=== PATIENT | female | born 1945 | race African-American/Black ===

== ENCOUNTER 2016-07-29 14:42 | Observation (INO) | payer OTHER ==
[~2016-07-29] VITALS: Ht 160 cm; Wt 104.8 kg
[2016-07-29] MEDS ORDERED: ASPirin 81 mg TAB PO ONE (15:30)
[2016-07-29 15:33] LABS: Basophils # (auto) 0.1 uL; Basophils % (auto) 0.9 % (0.0-2.0); Eosinophils # (auto) 0.1 uL; Eosinophils % (auto) 1.5 % (0.0-7.0); Hematocrit 40.9 % (36.0-46.0); Lymphocytes % (auto) 37.1 % (10.0-50.0); Mean Corpuscular Hemoglobin 28.5 pg (28.0-32.0); Mean Corpuscular Hgb Conc. 31.9 g/dL (32.0-36.0); Mean Corpuscular Volume 89.3 fL (80.0-100.0); Mean Platelet Volume 7.9 fL (7.4-10.4); Monocytes # (auto) 0.9 uL; Monocytes % (auto) 10.4 % (0.0-12.0); Neutrophils # (auto) 4.1 uL; Neutrophils % (auto) 50.1 % (37.0-80.0); Platelet Count (auto) 443 10^3/uL (140-450); Red Cell Distribution Width 14.9 % (11.6-16.0); White Blood Cell 8.2 10^3/uL (4.4-10.8)
[2016-07-29 15:47] LABS: INR 0.99 (0.9-1.15); Partial Thromboplastin Time 30.1 sec (22.64-33.71); Prothrombin Time 10.7 sec (9.37-12.3)
[2016-07-29 16:05] LABS: Albumin 3.2 g/dL (3.4-5.0); BUN/Creatinine Ratio 13.7; Bilirubin, Total 0.5 mg/dL (0.2-1.0); Calcium 9.5 mg/dL (8.5-10.1); Magnesium 2.6 mg/dL (1.6-2.6); Potassium 3.5 mmol/L (3.5-5.1); Total Protein 7.4 g/dL (6.4-8.2)
[2016-07-29 16:06] LABS: B-Type Natriuretic Peptide 45.55 pg/mL (0-100)
[2016-07-29 21:36] VITALS: BP 160/75
== END 2016-07-29 21:49 | disposition short-term general hospital (02) | DRG 313 ==
LOC: ER 14:52 → OVERFLOW 15:21 → ER 21:49
PROVIDERS: ADMIT Family Medicine; ATTEND Family Medicine
DX: R07.9 Chest pain, unspecified (principal); F17.210 Nicotine dependence, cigarettes, uncomplicated; J44.9 Chronic obstructive pulmonary disease, unspecified; I10 Essential (primary) hypertension; E78.5 Hyperlipidemia, unspecified; Z82.49 Family history of ischemic heart disease and other diseases of the circulatory system
CPT/HCPCS: 36415; 71010; 80053; 83735; 83880; 84443; 84484; 85025; 85379; 85610; 85730; 93005; 99285; G0378

== ENCOUNTER 2024-08-17 19:33 | Inpatient (IN) | payer OTHER ==
[~2024-08-17] VITALS: Ht 167.6 cm; Wt 63.6 kg
--- NOTE | 2024-08-17 19:53 | ECG ---
[facility] Test Date: 2024-08-17 Test Time: 19:42:48 Pat Name: JERRY MACON Department: ED Room: [address] [place] [address] Gender: F Mason Liner: ANICETO : 1945 Requested By: YAMILET ALMARAZ Order Number: [id number] Reading MD: Alexx Wood Measurements Intervals [place] Rate: 53 P: 57 TX: 171 QRS: 2 QRSD: 102 T: -74 QT: 470 QTc: 442 Interpretive Statements Sinus rhythm Atrial premature complexes Nonspecific T abnormalities, diffuse leads Electronically Signed On 08-24-2024 11:11:44 PDT by Alexx Wood Please click the below link to view image of tracing.
[2024-08-17 20:12] LABS: Basophils # (auto) 0.1 10 ^3/uL (0-0.2); Basophils % (auto) 1.1 % (0.0-2.0); Eosinophils # (auto) 0 10 ^3/uL (0-0.8); Eosinophils % (auto) 0.1 % (0.0-7.0); Hemoglobin 11.5 g/dL (12.2-16.2); Lymphocytes # (auto) 1.2 10 ^3/uL (0.4-5.4); Lymphocytes % (auto) 20.8 % (10.0-50.0); Mean Corpuscular Volume 93.8 fL (80.0-100.0); Monocytes # (auto) 0.3 10 ^3/uL (0-1.3); Monocytes % (auto) 5.5 % (0.0-12.0); Neutrophils # (auto) 4.1 10 ^3/uL (1.6-8.6); Neutrophils % (auto) 72.5 % (37.0-80.0); Nucleated Red Blood Cells % 0.1 %; Platelet Count (auto) 310 10^3/uL (140-450); Red Blood Cells 3.83 10^6/uL (4.0-5.20); Red Cell Distribution Width 15.1 % (11.8-14.3); White Blood Cell 5.6 10^3/uL (4.4-10.8)
[2024-08-17 20:28] LABS: Albumin 4.1 g/dL (3.2-4.8); Alkaline Phosphatase 84 U/L (46-116); Anion Gap 7 (5-15); BUN/Creatinine Ratio 16.6 (10.0-20.0); Glucose 94 mg/dL (74-106); Potassium 4.3 mmol/L (3.5-5.1); Sodium 141 mmol/L (136-145); Total Protein 6.7 g/dL (5.7-8.2)
[2024-08-17 20:29] LABS: Bilirubin, Total 1.2 mg/dL (0.2-1.0)
--- NOTE | 2024-08-17 21:02 | ED.PDOC ---
History of Present Illness HPI Comments 71-year-old female with a history of hypertension, angina, hyperlipidemia, COPD and arrhythmia brought in by EMS from [place] [facility]. Patient states she went to urgent Care to be evaluated after having chest pain last night, described as throbbing and palpitations that lasted 2-3 hours, then spontaneous ly resolved. She states she is no longer having chest pain, however she was found to have elevated blood pressure at urgent care and was referred to the ER. Patient was found by EMS with an initial blood pressure of 230/130. Patient states she has not taken her blood pressure medications (amlodipine and losartan) for the past 2 days. Patient currently denies chest pain, shortness of breath, edema, headache, vision changes, dizziness, focal weakness or other symptoms. Chief Complaint: Chest Pain Time Seen by MD: 19:40 Primary Care Provider: YESSI Reviewed Notes: Nurses Notes, Whiting Machine Operator Notes, Medications, Allergies Allergies: Coded Allergies: NO KNOWN ALLERGIES (Unverified , 07/29/16) Information Source: Patient, Emergency Med Personnel Mode of Arrival: EMS Severity: Moderate Timing: Days Duration: Hours Prehospital treatment: 12 Lead EKG, Inspector [employer] Past Medical History PAST MEDICAL HISTORY: COPD, High Lipids, HTN Past Medical History (Other): Angina Cardiac arrhythmias Diverticulitis Surgical History: Denies all surgeries CROSSTIE INSPECTOR History: Denies all CROSSTIE INSPECTOR Hx Family History Family History: No family hx of Cancer, No family hx of DM, No family hx ofKidney deepti, No family hx of Liver deepti, No family hx of Lung deepti, No family hx of Stroke, Family hx of heart deepti, Family hx of HTN Social History Smoker: Cigarettes, Less Than 1 Pack/Day Alcohol: Rarely Drugs: Denies Drug Use Lives In: Home All Other Systems: Reviewed and Negative (Comprehensive systems review obtained and negative except for what is stated in the HPI.) Physical Exam General Appearance: No Apparent Distress HEENT: Other (Pupils and face symmetric. Moist mucous membranes.) Neck: Full Range of Motion, Normal Inspection Respiratory: Lungs Clear, No Accessory Muscle Use, No Respiratory Distress, Normal Breath Sounds Cardiovascular: No Edema, No JVD, Regular Rate/Rhythm Breast Exam: Deferred Gastrointestinal: Non Tender, Soft Genitalia: Deferred Pelvic: Deferred Rectal: Deferred Extremities: Normal inspection, Normal range of motion, Non-tender, No pedal edema Neurologic: Alert (Oriented x4), Other (Ambulatory) Cerebellar Function: NOT DONE Reflexes: NOT DONE Skin: Dry, Normal Color, Warm Lymphatic: NOT DONE Was a procedure done? Was a procedure done?: No EKG EKG : Comments Sinus rhythm, rate 53, normal intervals, occasional PACs, normal axis, normal QRS, inferior and lateral T-wave inversion with other nonspecific T change Differential Dx Considerations may include: ACS, WI, CHF, unstable angina, AAA, aortic dissection, pericarditis, accelerated hypertension, hypertensive urgency/emergency, among others X-Ray, Labs, Meds, VS Vital Signs Date Time Temp Pulse Resp B/P (MAP) Pulse Ox O2 Delivery O2 Flow Rate FiO2 08/18/24 01:29 98.5 88 17 141/102 (115) 97 98.5 08/18/24 00:01 151/103 08/18/24 00:00 82 08/17/24 23:01 155/104 08/17/24 23:01 65 19 155/104 (121) 96 08/17/24 23:00 155/104 08/17/24 22:38 201/99 08/17/24 22:37 201/99 08/17/24 22:17 72 15 98 Room Air* 0 21 08/17/24 22:17 96.7 72 72 201/99 (133) 98 96.7 08/17/24 19:55 98.9 75 18 218/139 (165) 92 98.9 08/17/24 19:42 53 Lab Test 08/18/24 00:31 08/17/24 22:52 08/17/24 21:32 08/17/24 19:59 Range/Units Urine Color Pending Urine Clarity Pending Urine pH Pending Urine Specific [place] Pending Urine Protein Pending Urine Ketones Pending Urine Blood Pending Urine Nitrite Pending Urine Bilirubin Pending Urine Urobilinogen Pending Urine Leukocyte Esterase Pending Urine RBC Pending Urine Microscopic WBC Pending Urine Squamous Epithelial Cells Pending Urine Bacteria Pending Urine Glucose Pending Troponin I High Sensitivity 583 *H 568 *H 573 *H </=34 ng/L White Blood Count 5.6 4.4-10.8 10^3/uL Red Blood Count 3.83 L 4.0-5.20 10^6/uL Hemoglobin 11.5 L 12.2-16.2 g/dL Hematocrit 36.0 36.0-46.0 % Mean Corpuscular Volume 93.8 80.0-100.0 fL Mean Corpuscular Hemoglobin 30.0 28.0-32.0 pg Mean Corpuscular Hemoglobin Concent 32.0 32.0-36.0 g/dL Red Cell Distribution Width 15.1 H 11.8-14.3 % Platelet Count 310 140-450 10^3/uL Mean Platelet Volume 7.9 6.9-10.8 fL Neutrophils (%) (Auto) 72.5 37.0-80.0 % Lymphocytes (%) (Auto) 20.8 10.0-50.0 % Monocytes (%) (Auto) 5.5 0.0-12.0 % Eosinophils (%) (Auto) 0.1 0.0-7.0 % Basophils (%) (Auto) 1.1 0.0-2.0 % Neutrophils # (Auto) 4.1 1.6-8.6 10 ^3/uL Lymphocytes # (Auto) 1.2 0.4-5.4 10 ^3/uL Monocytes # (Auto) 0.3 0-1.3 10 ^3/uL Eosinophils # (Auto) 0 0-0.8 10 ^3/uL Basophils # (Auto) 0.1 0-0.2 10 ^3/uL Nucleated Red Blood Cells 0.1 % Sodium Level 141 136-145 mmol/L Potassium Level 4.3 3.5-5.1 mmol/L Chloride Level 114 H 98-107 mmol/L Carbon Dioxide Level 20 20-31 mmol/L Anion Gap 7 5-15 Blood Urea Nitrogen 31 H 9-23 mg/dL Creatinine 1.87 H 0.550-1.02 mg/dL Glomerular Filtration Rate Calc 27 >90 mL/min BUN/Creatinine Ratio 16.6 10.0-20.0 Serum Glucose 94 74-106 mg/dL Calcium Level 10.9 H 8.7-10.4 mg/dL Total Bilirubin 1.2 H 0.2-1.0 mg/dL Aspartate Amino Transferase (AST) 45 H 13-40 U/L Alanine Aminotransferase (ALT) 68 H 7-40 U/L Alkaline Phosphatase 84 46-116 U/L B-Type Natriuretic Peptide 3944.47 0-100 pg/mL Total Protein 6.7 5.7-8.2 g/dL Albumin 4.1 3.2-4.8 g/dL Current Medications Medications (Trade) Dose Ordered Sig/Alfredito Route Start Time Stop Time Status Last Admin Hydralazine HCl (Apresoline Injection) 10 mg ONCE ONCE IV 08/17/24 20:45 08/17/24 20:46 DC 08/17/24 22:37 Losartan Potassium (Cozaar Tablet) 25 mg ONCE ONCE PO 08/17/24 20:45 08/17/24 20:46 DC 08/17/24 22:38 Nitroglycerin (Nitrodur 0.4MG/ Hr) 1 patch ONCE ONCE TD 08/17/24 22:45 08/17/24 22:46 DC 08/17/24 23:01 Furosemide (Lasix Injection) 40 mg ONCE ONCE IV 08/17/24 22:45 08/17/24 22:46 DC 08/17/24 23:00 Aspirin 325 mg ONCE ONCE PO 08/17/24 23:30 08/17/24 23:41 DC 08/18/24 00:05 [place] [id number] Ph: [phone] DIAGNOSTIC IMAGING Diagnostic Imaging Report : [id number] Signed PATIENT: JERRY CLIFTON ACCT: [id number] UNIT: [id number] : 1945 LOC: ER ROOM / BED: / AGE / SEX: 79 / F ADM STATUS: REG ER SERVICE 41 ORDERING PHYSICIAN: YAMILET CHUNG MD PROCEDURE(s): CXRP - CHEST PORTABLE REASON: cp ORDER NUMBER(s): [id number], ACCESSION NUMBER(s): [id number] CHEST RADIOGRAPH Indication: cp Technique: Single frontal view of the chest was obtained COMPARISON: None FINDINGS: Lines and Tubes: None Lungs: Diffuse increased interstitial prominence Pleura: No effusion. No pneumothorax. Cardiomediastinal contours: Cardiomegaly Bones: Unremarkable IMPRESSION: Pulmonary edema ATED BY: TRINO NEWMAN MD DICTATED DATE/TIME: 08/17/242108 SIGNED BY: TRINO NEWMAN MD SIGNED DATE/TIME: 08/17/242108 CC: X-Ray, Labs, Meds, VS Comment 71-year-old female with a history of hypertension, angina, hyperlipidemia, COPD and arrhythmia brought in by EMS from [place] [facility] for evaluation of chest pain last night and elevated blood pressure today Vitals remarkable for BP 218/139, oxygen saturation 92% on room air Exam unremarkable Rhythm strip independently interpreted by me: Sinus rhythm, rate 53, occasional PACs Chest x-ray pulmonary edema CBC unremarkable, metabolic panel remarkable for BUN 31, creatinine 1.87, mild transaminitis, serial troponins 573, 568, 583, BNP 3944.47 Patient treated with the following in the ED: Hydralazine 10 mg IV, losartan 25 mg p.o., nitro patch 0.4 mg transdermal, Lasix 40 mg IV, aspirin 325 mg p.o. On re-evaluation, patient remains asymptomatic. Blood pressure is 155/104. Plan is to admit or transfer the patient for blood pressure control, diuresis and Cardiology evaluation Case discussed with Dr. Balbuena at [facility], agreed patient is not stable for transfer. We are authorized to admit the patient here. Authorization [id number] Time of 1ST Reevaluation: 20:10 Reevaluation 1ST: Unchanged Time of 2ND Reevaluation: 04:40 Reevaluation 2ND: Improved Patient Education/Counseling: Treatment, Other (need for admission ) Family Education/Counseling: No Family Present Departure 1 Departure Time of Disposition: 23:40 Impression: Primary Impression: Hypertensive emergency Additional Impressions: New onset of congestive heart failure Non-STEMI (non-ST elevated myocardial infarction) Disposition: ADMITTED INPATIENT Admit to: Tele Condition: Guarded Critical Care Note Critical Care Time?: Yes (45 min-critical care time only) Critical care comment: Critical care time including multiple bedside re-evaluations, review of lab and imaging studies, and discussion of the case with the consulting and admitting providers. Patient is high risk for hemodynamic decompensation. Stability Stability form required: No Heart Score Heart Score: Heart Score Response (Comments) Value History Highly Suspicious 2 EKG Repolarization Disturb 1 Age >65 2 Risk Factors >3 or Hx ASHD 2 Troponin >3 x's Normal limit 2 Total 9 I personally scribed for YAMILET CHUNG MD ([email or web address]) on 08/17/24 at 21:02. Electronically submitted by Marquise Scott ([email or web address]). I personally scribed for YAMILET CHUNG MD ([email or web address]) on 08/17/24 at 21:16. Electronically submitted by Marquise Scott ([email or web address]). I personally scribed for YAMILET CHUNG MD ([email or web address]) on 08/17/24 at 21:34. Electronically submitted by Marquise Scott ([email or web address]). YAMILET CHUNG MD August 17, 2024 21:02
[2024-08-17 21:07] LABS: Alanine Aminotransferase 68 U/L (7-40); Aspartate Aminotransferase 45 U/L (13-40); Blood Urea Nitrogen 31 mg/dL (9-23); Calcium 10.9 mg/dL (8.7-10.4); Carbon Dioxide 20 mmol/L (20-31); Chloride 114 mmol/L (98-107)
--- NOTE | 2024-08-17 21:11 | DVH ---
CHEST RADIOGRAPH Indication: cp Technique: Single frontal view of the chest was obtained COMPARISON: None FINDINGS: Lines and Tubes: None Lungs: Diffuse increased interstitial prominence Pleura: No effusion. No pneumothorax. Cardiomediastinal contours: Cardiomegaly Bones: Unremarkable IMPRESSION: Pulmonary edema
[2024-08-17 22:17] VITALS: PULSE 72; RESP 15; O2SAT 98
[2024-08-17] MEDS: hydrALAZINE HCL 20 MG/ML VL IV ONE (22:37)
[2024-08-17] MEDS: LOSARTAN POTASSIUM 25 MG TAB PO ONE (22:38)
[2024-08-17] MEDS: FUROSEMIDE 40 MG/4 ML VIAL IV ONE (23:00)
[2024-08-17] MEDS: NITROGLYCERIN 0.4MG/HR TOPICAL PATCH TD ONE (23:01)
[2024-08-18] MEDS: ASPirin 325 MG TAB PO ONE (00:05)
[2024-08-18] MEDS ORDERED: MORPHINE SULFATE INJ 2 MG/ml SYRG IV PRN (05:00)
[2024-08-18] MEDS ORDERED: NITROGLYCERIN 0.4 MG SL TAB SL PRN (05:00)
[2024-08-18] MEDS ORDERED: ONDANSETRON HCL 4 MG/2 ML VIAL IV PRN (05:00)
--- NOTE | 2024-08-18 05:18 | DVHHP2 ---
History of Present Illness Reason for Visit: CHEST PAIN History of Present Illness 71-YEAR-OLD FEMALE PRESENTS FOR EVALUATION OF CHEST PAIN. PATIENT INITIALLY PRESENTED TO URGENT CARE TO BE EVALUATED FOR CHEST PAIN WHICH SHE HAD THE NIGHT PRIOR. SHE WAS NOTED TO HAVE A BLOOD PRESSURE OF 230/130. SHE WAS ADVISED TO PRESENT TO THE NEAREST EMERGENCY DEPARTMENT FOR FURTHER EVALUATION. CURRENTLY SHE DENIES CHEST PAIN OR SHORTNESS FOR BREATH. DENIES HEADACHE OR BLURRED VISION. SHE DOES REPORT MILD DIZZINESS. DENIES ANY VISUAL CHANGES. Past Medical History HYPERTENSION, DYSLIPIDEMIA, COPD Past Surgical History DENIES Family History NONCONTRIBUTORY Smoke: <1 pack per day ALCOHOL: occassional Drugs: None Lives: with Family Review of Systems Review of Systems REVIEW OF SYSTEMS ARE CURRENTLY NEGATIVE OTHERWISE ADDRESSED IN HPI. Allergies: Coded Allergies: NO KNOWN ALLERGIES (Unverified , 07/29/16) Medications Current Medications Medications Dose Ordered Sig/Alfredito Route Start Time Stop Time Status Last Admin Dose Admin Furosemide 20 mg DAILY IV 08/18/24 10:00 Amlodipine Besylate 10 mg DAILY PO 08/18/24 10:00 Hydralazine HCl 10 mg Q6HP PRN IV 08/18/24 05:00 Aspirin 162 mg DAILY PO 08/18/24 10:00 Ondansetron HCl 4 mg Q4HP PRN IV 08/18/24 05:00 Acetaminophen 650 mg Q6HP PRN PO 08/18/24 05:00 Nitroglycerin 0.4 mg Q5MINP PRN SL 08/18/24 05:00 Morphine Sulfate 2 mg Q30M PRN IV 08/18/24 05:00 Exam Vital Signs Vital Signs Date Time Temp Pulse Resp B/P (MAP) Pulse Ox O2 Delivery O2 Flow Rate FiO2 08/18/24 04:55 97.0 73 20 172/76 (108) 96 97.0 08/17/24 22:17 Room Air* 0 21 Exam GEN: 71-YEAR-OLD FEMALE IN NO APPARENT DISTRESS. SKIN: WARM, DRY, NORMAL COLOR AND TEXTURE, NO RASH. HEENT: NORMOCEPHALIC ATRAUMATIC, MUCOUS MEMBRANES MOIST AND PINK. NECK: CERVICAL AND SUPRACLAVICULAR NODES NORMAL WITHOUT ENLARGEMENT, TRACHEA IS MIDLINE, THYROID GLAND IS NORMAL WITHOUT MASSES. PULMONARY: CLEAR TO AUSCULTATION AND PERCUSSION BILATERALLY. CARDIAC: REGULAR RATE AND RHYTHM. NO MURMUR ABDOMEN: SOFT, NONTENDER, NONDISTENDED, BOWEL SOUNDS PRESENT ALL 4 QUADRANTS, NO GUARDING, NO RIGIDITY, NO ORGANOMEGALY. EXTREMITIES: NO CYANOSIS, CLUBBING, NO EDEMA NEURO: CRANIAL NERVES II THROUGH XII GROSSLY INTACT, NORMAL AFFECT AND SPEECH, NO FOCAL MOTOR DEFICITS. Labs/Xrays ORDERING PHYSICIAN: YAMILET CHUNG MD PROCEDURE(s): CXRP - CHEST PORTABLE REASON: cp ORDER NUMBER(s): [id number], ACCESSION NUMBER(s): [id number] CHEST RADIOGRAPH Indication: cp Technique: Single frontal view of the chest was obtained COMPARISON: None FINDINGS: Lines and Tubes: None Lungs: Diffuse increased interstitial prominence Pleura: No effusion. No pneumothorax. Cardiomediastinal contours: Cardiomegaly Bones: Unremarkable IMPRESSION: Pulmonary edema ATED BY: TRINO NEWMAN MD Labs Test 08/18/24 00:31 08/17/24 22:52 08/17/24 19:59 Range/Units Troponin I High Sensitivity 583 *H </=34 ng/L White Blood Count 5.6 4.4-10.8 10^3/uL Red Blood Count 3.83 L 4.0-5.20 10^6/uL Hemoglobin 11.5 L 12.2-16.2 g/dL Hematocrit 36.0 36.0-46.0 % Mean Corpuscular Volume 93.8 80.0-100.0 fL Mean Corpuscular Hemoglobin 30.0 28.0-32.0 pg Mean Corpuscular Hemoglobin Concent 32.0 32.0-36.0 g/dL Red Cell Distribution Width 15.1 H 11.8-14.3 % Platelet Count 310 140-450 10^3/uL Mean Platelet Volume 7.9 6.9-10.8 fL Neutrophils (%) (Auto) 72.5 37.0-80.0 % Lymphocytes (%) (Auto) 20.8 10.0-50.0 % Monocytes (%) (Auto) 5.5 0.0-12.0 % Eosinophils (%) (Auto) 0.1 0.0-7.0 % Basophils (%) (Auto) 1.1 0.0-2.0 % Neutrophils # (Auto) 4.1 1.6-8.6 10 ^3/uL Lymphocytes # (Auto) 1.2 0.4-5.4 10 ^3/uL Monocytes # (Auto) 0.3 0-1.3 10 ^3/uL Eosinophils # (Auto) 0 0-0.8 10 ^3/uL Basophils # (Auto) 0.1 0-0.2 10 ^3/uL Nucleated Red Blood Cells 0.1 % Sodium Level 141 136-145 mmol/L Potassium Level 4.3 3.5-5.1 mmol/L Chloride Level 114 H 98-107 mmol/L Carbon Dioxide Level 20 20-31 mmol/L Anion Gap 7 5-15 Blood Urea Nitrogen 31 H 9-23 mg/dL Creatinine 1.87 H 0.550-1.02 mg/dL Glomerular Filtration Rate Calc 27 >90 mL/min BUN/Creatinine Ratio 16.6 10.0-20.0 Serum Glucose 94 74-106 mg/dL Calcium Level 10.9 H 8.7-10.4 mg/dL Total Bilirubin 1.2 H 0.2-1.0 mg/dL Aspartate Amino Transferase (AST) 45 H 13-40 U/L Alanine Aminotransferase (ALT) 68 H 7-40 U/L Alkaline Phosphatase 84 46-116 U/L B-Type Natriuretic Peptide 3944.47 0-100 pg/mL Total Protein 6.7 5.7-8.2 g/dL Albumin 4.1 3.2-4.8 g/dL Assessment/Plan Assessment/Plan ASSESSMENT ACUTE HEART FAILURE ELEVATED TROPONIN, POSSIBLE DEMAND ISCHEMIA PULMONARY EDEMA MILD TRANSAMINITIS, POSSIBLE VENOUS CONGESTION ACUTE KIDNEY INJURY, POSSIBLE VASOMOTOR NEPHROPATHY PLAN ADMIT THE PATIENT TO TELEMETRY TO THE HOSPITALIST CARDIOLOGY CONSULTATION NEPHROLOGY CONSULT IV LASIX RESUME HOME MEDICATIONS CONTINUE TREATMENT PER ORDERS. Plan discussed with: Patient My Orders Orders - ANNE SMALL AGACNP Procedure Category Date Status Time * Cardiology Consult CONS 08/18/24 Transmitted 05:00 Furosemide Injection PHA 08/18/24 In Process (Lasix Injection) 10:00 Amlodipine Tablet PHA 08/18/24 In Process (Norvasc Tablet) 10:00 Hydralazine Injection PHA 08/18/24 In Process (Apresoline Inject 05:00 Kidney US 08/18/24 Logged 05:00 Aspirin Tablet PHA 08/18/24 In Process 10:00 Thyroid Stimulating LAB 08/18/24 Logged Hormone 05:00 Lipid Panel LAB 08/18/24 Logged 05:00 Admit ADMIT 08/18/24 Transmitted 05:00 Renal DIET 08/18/24 Transmitted Standard(2gna,3gk,Lopho) Breakfast Ondansetron Hcl PHA 08/18/24 In Process (Zofran) 05:00 Complete Blood Count LAB 08/19/24 Verified 04:00 Comprehensive LAB 08/19/24 Verified Metabolic Panel 04:00 Cardiac DIET 08/18/24 Transmitted Diet-2gna,Lofat,Lochol Breakfast Echo 2d Mode Cardiac US 08/18/24 Logged DOP 05:00 Condition: Fair SHIRA 08/18/24 In Process 05:00 Acetaminophen Tablet PHA 08/18/24 In Process (Tylenol Tablet) 05:00 Bedrest With Bathroom SHIRA 08/18/24 In Process Privileg 05:00 Nitroglycerin PHA 08/18/24 In Process Sublingual (Ntrostat 05:00 Morphine Sulfate PHA 08/18/24 In Process Injection 05:00 Stat Ekg For Chest SHIRA 08/18/24 In Process Pain 05:00 Notify Md Of Changes SHIRA 08/18/24 In Process From Base 05:00 Automated Cutting Machine Operator For SHIRA 08/18/24 In Process 24 Hours 05:00 Emergency Dysrhythmia SHIRA 08/18/24 In Process Protocol 05:00 Rhythm Strips Once SHIRA 08/18/24 In Process Every Shift 05:00 Oxygen By Nasal RT 08/18/24 Transmitted Cannula 05:00 Date of Service: August 18, 2024 Billing Provider: ANNE SMALL Common Visit Codes: [id number] INP/OBS CARE (HIGH) ANNE SMALL August 18, 2024 05:18
[2024-08-18] MEDS: ACETAMINOPHEN 325 MG TAB PO PRN (05:33)
[2024-08-18] MEDS: hydrALAZINE HCL 20 MG/ML VL IV PRN (05:35)
[2024-08-18] MEDS: ENOXAPARIN SOD 100 MG/1 ML SYRINGE SC ONE (05:35)
[2024-08-18 06:30] LABS: Triglycerides 66 mg/dL (< 150)
[2024-08-18 06:32] LABS: Cholesterol 178 mg/dL (< 200); HDL Cholesterol 58 mg/dL (40-59)
[2024-08-18 06:33] LABS: LDL Cholesterol 108 mg/dL (< 100)
[2024-08-18 07:13] VITALS: PULSE 78; RESP 19; O2SAT 96
--- NOTE | 2024-08-18 08:23 | DVH ---
INDICATION: renal failure TECHNIQUE: Multiple real-time sonographic images of the kidneys and bladder were obtained. COMPARISON: None FINDINGS: The right kidney measures 8.9 cm in length, which is normal in size. There is normal echoge nicity of the right kidney. There is a cyst in the lower pole measuring 2.0 x 1.7 x 1.7 cm. No hydron ephrosis. The left kidney measures 8.8 cm in length, which is normal in size. There is normal echogenicity of t he left kidney. There is a cyst in the lower pole measuring 2.9 x 2.3 x 2.0 cm. No hydronephrosis. No large intraluminal masses are seen in the bladder. Prior to voiding the bladder volume measures vo lume are 330 cc. IMPRESSION: 1. No hydronephrosis. Bilateral renal cysts.
[2024-08-18] MEDS: amLODIPine BESYLATE 5 MG TAB PO SCH (10:28)
[2024-08-18] MEDS: ASPirin 81 mg TAB PO SCH (10:28)
--- NOTE | 2024-08-18 11:24 | DVHINCON2 ---
Date Seen: August 18, 2024 Referring Physician JUANA Wu Reason for Consultation Elevated troponin, CHF History of Present Illness This is an 79-year-old female patient who presents to the emergency room with chief complaint of shortness of breath, palpitations, and headache. The patient states that she was seen at [facility] due to shortness of breath. She was then transferred here via EMS for further evaluation. The patient denies any chest pain prior to emergency room arrival. Although, it is documented per ER admitting providers that the patient was having chest pain. The patient denies and states that it was palpitations. She states that symptoms began on day of admission. Cardiology has been consulted at this time for further evaluation. Initial twelve lead electrocardiogram reveals sinus bradycardia with PACs and diffuse nonspecific ST segment changes. It was worth noting, that the patient came in with a blood pressure reaching as high as 218/139. Initial troponin level of 573ng/L with flat trend thereafter. Significant past medical history includes hypertension, hyperlipidemia, COPD, chronic pain, and tobacco use. The patient and her daughter at bedside admit that the patient has not been compliant with her home antihypertensive regimen. Past Medical History Past medical history reviewed. No other significant than mentioned above. Past Surgical History Denies any previous surgeries Family History Family history reviewed. Social History Patient has a 60 pack-year history, smokes one pack per day Denies any illicit drug use Denies any alcohol use Allergies: Coded Allergies: NO KNOWN ALLERGIES (Unverified , 07/29/16) Home Meds Home medications reviewed. Current Medications Current Medications Medications (Trade) Dose Ordered Sig/Alfredito Route PRN Reason Start Time Stop Time Status Last Admin Furosemide (Lasix Injection) 20 mg DAILY IV 08/18/24 10:00 Amlodipine Besylate (Norvasc Tablet) 10 mg DAILY PO 08/18/24 10:00 08/18/24 10:28 Hydralazine HCl (Apresoline Injection) 10 mg Q6HP PRN IV SBP>150 08/18/24 05:00 08/18/24 05:35 Aspirin 162 mg DAILY PO 08/18/24 10:00 08/18/24 10:28 Ondansetron HCl (Zofran) 4 mg Q4HP PRN IV NAUSEA / VOMITING 08/18/24 05:00 Acetaminophen (Tylenol Tablet) 650 mg Q6HP PRN PO PAIN SCALE 1-3 OR TEMP>100.4 08/18/24 05:00 08/18/24 05:33 Nitroglycerin (Ntrostat Sublingual) 0.4 mg Q5MINP PRN SL FOR CHEST PAIN 08/18/24 05:00 Morphine Sulfate 2 mg Q30M PRN IV FOR CHEST PAIN 08/18/24 05:00 Review of Systems Constitutional: No symptom reported Ears, Nose, & Throat: No symptom reported Eyes: No symptom reported Neurological: Headache Pulmonary/Respiratory: Shortness of breath Cardiovascular: Palpitations Gastrointestinal: No symptom reported Genitourinary: No symptom reported Musculoskeletal: No symptom reported Skin: No symptom reported Psychiatric: No symptom reported Endocrine: No symptom reported Hematologic/Lymphatic: No symptom reported Vital Signs Vital Signs Date Time Temp Pulse Resp B/P (MAP) Pulse Ox O2 Delivery O2 Flow Rate FiO2 08/18/24 10:28 172/73 08/18/24 10:00 71 20 98 08/18/24 08:37 98.1 98.1 08/18/24 07:13 Room Air* 0 21 Physical Exam General Appearance: Cooperative. Well-developed. Well-nourished. No acute distress. Pulmonary/Respiratory: Clear, bilateral breaths sounds. Cardiovascular/Chest: Regular rate and rhythm. Peripheral Pulses: 2+ Radial (R). 2+ Radial (L). 2+ Pedal (R). 2+ Pedal (L) Abdominal Exam: Normal bowel sounds. Ankle Exam: Negative ankle edema Lower extremities: Negative lower extremity edema Neuro/Mental Status: A/OX4, coherent. Thoughts/Psych: Normal thought pattern. Appropriate mood and affect. Good judgment and insight. Appearance: No acute distress. Skin Exam: Normal inspection. Normal color. Warm and dry. Labs/Diagnostic Data Labs Test 08/18/24 05:44 08/18/24 00:31 08/17/24 22:52 08/17/24 19:59 Range/Units Triglycerides Level 66 < 150 mg/dL Cholesterol Level 178 < 200 mg/dL LDL Cholesterol 108 H < 100 mg/dL HDL Cholesterol 58 40-59 mg/dL Thyroid Stimulating Hormone (TSH) 1.78 0.55-4.78 uIU/mL Troponin I High Sensitivity 583 *H </=34 ng/L White Blood Count 5.6 4.4-10.8 10^3/uL Red Blood Count 3.83 L 4.0-5.20 10^6/uL Hemoglobin 11.5 L 12.2-16.2 g/dL Hematocrit 36.0 36.0-46.0 % Mean Corpuscular Volume 93.8 80.0-100.0 fL Mean Corpuscular Hemoglobin 30.0 28.0-32.0 pg Mean Corpuscular Hemoglobin Concent 32.0 32.0-36.0 g/dL Red Cell Distribution Width 15.1 H 11.8-14.3 % Platelet Count 310 140-450 10^3/uL Mean Platelet Volume 7.9 6.9-10.8 fL Neutrophils (%) (Auto) 72.5 37.0-80.0 % Lymphocytes (%) (Auto) 20.8 10.0-50.0 % Monocytes (%) (Auto) 5.5 0.0-12.0 % Eosinophils (%) (Auto) 0.1 0.0-7.0 % Basophils (%) (Auto) 1.1 0.0-2.0 % Neutrophils # (Auto) 4.1 1.6-8.6 10 ^3/uL Lymphocytes # (Auto) 1.2 0.4-5.4 10 ^3/uL Monocytes # (Auto) 0.3 0-1.3 10 ^3/uL Eosinophils # (Auto) 0 0-0.8 10 ^3/uL Basophils # (Auto) 0.1 0-0.2 10 ^3/uL Nucleated Red Blood Cells 0.1 % Sodium Level 141 136-145 mmol/L Potassium Level 4.3 3.5-5.1 mmol/L Chloride Level 114 H 98-107 mmol/L Carbon Dioxide Level 20 20-31 mmol/L Anion Gap 7 5-15 Blood Urea Nitrogen 31 H 9-23 mg/dL Creatinine 1.87 H 0.550-1.02 mg/dL Glomerular Filtration Rate Calc 27 >90 mL/min BUN/Creatinine Ratio 16.6 10.0-20.0 Serum Glucose 94 74-106 mg/dL Calcium Level 10.9 H 8.7-10.4 mg/dL Total Bilirubin 1.2 H 0.2-1.0 mg/dL Aspartate Amino Transferase (AST) 45 H 13-40 U/L Alanine Aminotransferase (ALT) 68 H 7-40 U/L Alkaline Phosphatase 84 46-116 U/L B-Type Natriuretic Peptide 3944.47 0-100 pg/mL Total Protein 6.7 5.7-8.2 g/dL Albumin 4.1 3.2-4.8 g/dL Assessment Hypertensive urgency NSTEMI Rule out structural heart disease Hyperlipidemia COPD Acute kidney injury versus CKD Tobacco use Medication noncompliance Plan/Recommendation We will continue with the following plan/recommendations (Dr. Wood): * Transthoracic echocardiogram to evaluate cardiac function * Aggressive blood pressure control as tolerated * Lipid-lowering agent * Close Cardiac surveillance: Notify cardiology team for any ECG changes * Repeat EKG with stable BP Further recommendations per clinical course and progression. Thank you for allowing us to care for this patient. Please call with any questions or concerns. Critical care time spent: 44 minutes This medical document was created using an electronic medical record system with voice recognition software and computerized dictation system. Although this document has been carefully reviewed, there might still be some phonetic and typographical errors. Occasional wrong-word or ``sound-alike substitutions may have occurred due to the inherent limitations of voice recognition software. These areas are purely typographical due to imperfections of the software programs and do not reflect any compromise in the patient's medical care. Please read the chart carefully and recognize, using context, where these substitutions have occurred. Plan discussed with: Patient NYHA Physical activity limitations: NA Date of Service: August 18, 2024 Billing Provider: NABIL BENITO Cardiology Common Codes: 24217-[id number] INP/OBS CARE (High) Cardiology Consultation Codes: 28720-[id number] CONSULT <45MIN NABIL BENITO August 18, 2024 11:24
[2024-08-18] MEDS: FUROSEMIDE 20 MG/2 ML VIAL IV SCH (11:29)
[2024-08-18 12:13] LABS: Potassium 3.7 mmol/L (3.5-5.1)
[2024-08-18 12:15] LABS: Anion Gap 13 (5-15); Calcium 11.4 mg/dL (8.7-10.4); Carbon Dioxide 19 mmol/L (20-31); Chloride 114 mmol/L (98-107); Sodium 146 mmol/L (136-145)
[2024-08-18 12:19] LABS: Glucose 87 mg/dL (74-106)
[2024-08-18 12:20] LABS: BUN/Creatinine Ratio 17.6 (10.0-20.0); Blood Urea Nitrogen 31 mg/dL (9-23)
[2024-08-18 14:08] LABS: Urine Bacteria FEW /hpf (None Seen); Urine Blood Negative /uL (Negative); Urine Clarity Clear (Clear); Urine Color Colorless (Yellow); Urine Protein, UAD Negative (Negative); Urine Specific Gravity 1.007 (1.001-1.035); Urine Squamous Epithelial Cell FEW /hpf (<5); Urine Urobilinogen Normal (Negative); Urine WBC 3 /HPF (0-5)
--- NOTE | 2024-08-18 16:53 | DVHPN2 ---
Subjective Patient with altered mental status Reviewed: Care Plan, H&P, Labs, Medications Changes from previous H/P or p: No Changes General: Per HPI Objective Vitals Vital Signs Date Time Temp Pulse Resp B/P (MAP) Pulse Ox O2 Delivery O2 Flow Rate FiO2 08/18/24 16:00 70 16 153/95 (114) 98 08/18/24 08:37 98.1 98.1 08/18/24 07:13 Room Air* 0 21 General Appearance: Alert, mild distress HEENT: Atraumatic, PERRLA Cardiovascular: Normal S1, Normal S2 Abdomen: Normal bowel sounds, Soft, No tenderness, No hepatospenomegaly Musculoskeletal: Normal motor function Neuro: Sensation intact, Cranial nerves 3-12 NL Skin: Dry, Intact Psych/Mental Status: Other (Altered mental status) Medications Current Medications Medications Dose Ordered Sig/Alfredito Route Start Time Stop Time Status Last Admin Dose Admin Furosemide 20 mg DAILY IV 08/18/24 10:00 08/18/24 11:29 20 MG Amlodipine Besylate 10 mg DAILY PO 08/18/24 10:00 08/18/24 10:28 10 MG Hydralazine HCl 10 mg Q6HP PRN IV 08/18/24 05:00 08/18/24 05:35 10 MG Ondansetron HCl 4 mg Q4HP PRN IV 08/18/24 05:00 Acetaminophen 650 mg Q6HP PRN PO 08/18/24 05:00 08/18/24 05:33 650 MG Nitroglycerin 0.4 mg Q5MINP PRN SL 08/18/24 05:00 Morphine Sulfate 2 mg Q30M PRN IV 08/18/24 05:00 Aspirin 81 mg DAILY PO 08/19/24 10:00 Labetalol HCl 10 mg Q2HPRN PRN IV 08/18/24 17:00 UNV Laboratory Results Laboratory Tests 08/17/24 19:59 08/18/24 05:44 Chemistry Test 08/17/24 19:59 08/18/24 05:44 Albumin 4.1 g/dL (3.2-4.8) Calcium Level 10.9 mg/dL (8.7-10.4) H 11.4 mg/dL (8.7-10.4) H Total Protein 6.7 g/dL (5.7-8.2) Lipid panel Test 08/18/24 05:44 Cholesterol Level 178 mg/dL (< 200) HDL Cholesterol 58 mg/dL (40-59) Triglycerides Level 66 mg/dL (< 150) Cardiac Markers Test 08/17/24 19:59 B-Type Natriuretic Peptide 3944.47 pg/mL (0-100) LFT Test 08/17/24 19:59 Alanine Aminotransferase (ALT) 68 U/L (7-40) H Alkaline Phosphatase 84 U/L (46-116) Aspartate Amino Transferase (AST) 45 U/L (13-40) H Total Bilirubin 1.2 mg/dL (0.2-1.0) H HgA1c, TSH Test 08/18/24 05:44 Hemoglobin A1c 4.5 % A1C (<5.7) Thyroid Stimulating Hormone (TSH) 1.78 uIU/mL (0.55-4.78) Urinalysis Test 08/18/24 13:57 Urine Color Colorless (Yellow) Urine Clarity Clear (Clear) Urine pH 5.0 (5.0-9.0) Urine Specific [place] 1.007 (1.001-1.035) Urine Protein Negative (Negative) Urine Ketones Negative (Negative) Urine Blood Negative /uL (Negative) Urine Nitrite Negative (Negative) Urine Bilirubin Negative (Negative) Urine Urobilinogen Normal mg/dL (Negative) Urine Leukocyte Esterase Trace /uL (Negative) Urine RBC 2 /hpf (0 - 4) Urine Microscopic WBC 3 /HPF (0-5) Urine Squamous Epithelial Cells Few /hpf (<5) Urine Bacteria Few /hpf (None Seen) H Urine Glucose Normal mg/dL (Normal) Labs and/or images reviewed: Labs reviewed by me, Image(s) reviewed by me Assessment/Plan Assessment/Plan Impression: -metabolic encephalopathy, rule out CVA -hypertensive crisis -NSTEMI, probably type 2 secondary to hypertensive crisis -acute on chronic decompensated systolic heart failure -acute hypoxic respiratory failure -chronic opiate use -CKD stage IIIB Plan: -patient now with worsening neurological status, confusion. Patient taken off medical equipment and not following commands. Stat CT scan of the head rule out CVA -cardiology consultation: Recommendations reviewed -echocardiogram, results pending -antihypertensives -IV diuresis -initiate GDMT if patient's ejection fraction is compromised -unstable to transfer to [facility] given patient's acute mental change Critical care time spent with patient discussing and formulating plan of care: 40 minutes. This does not include time spent performing procedures. This medical document was created using an electronic medical record system with [employer] dictation system. Although this document has been carefully reviewed, there may still be some phonetic and typographical errors. These areas are purely typographical due to imperfections of the software programs, and do not reflect any compromise in the patient's medical care. Plan discussed with: Patient, Daughter, Other (RN, Granddaughter) My Orders Orders - NIC VIERA NP Procedure Category Date Status Time Head Without Contrast CT 08/18/24 Logged 16:47 Labetalol Hcl PHA 08/18/24 Verified (Labetalol Hcl) 17:00 Drug Screen LAB 08/18/24 Verified 16:49 Date of Service: August 18, 2024 Billing Provider: NIC VIERA NP Common Visit Codes: [id number] CARE 30-74 MIN NIC VIERA NP August 18, 2024 16:53
[2024-08-18] MEDS ORDERED: LABETALOL HCL 20 MG/4 ML VL IV PRN (17:00)
[2024-08-18 17:13] LABS: Amphetamine Screen, Urine Neg (NEGATIVE); Barbiturate Scree,Urine Neg (NEGATIVE); Benzodiazephine Screen, Urine Neg (NEGATIVE); Cannabinoid Screen, Urine Neg (NEGATIVE); Cocaine Screen, Urine Neg (NEGATIVE); Opiate Scree,Urine Neg (NEGATIVE); Phencyclidine Screen, Urine Neg (NEGATIVE)
--- NOTE | 2024-08-18 18:25 | DVH ---
EXAM: CT HEAD WITHOUT CONTRAST HISTORY: rule out CVA COMPARISON: None TECHNIQUE: Axial images were obtained and reformatted in coronal and sagittal planes. All CT scans at this medical facility are performed using dose modulation techniques as appropriate t o a performed exam including the following: Automated exposure control was utilized; adjustment of th e MA and/or KV according to patient size; and use of iterative reconstruction technique. CT Dose: CTDI volume is 57.05 mGy. Dose-length product is 1124.52 mGy*cm FINDINGS: Supratentorial Region: No evidence for large acute territorial ischemia. No intracranial hemorrhage is noted. Posterior Fossa: No acute abnormality. Brainstem: Unremarkable. Sellar/Suprasellar Region: Unremarkable. Ventricles, Cisterns, Sulci: Age-appropriate. Orbits: Unremarkable. Paranasal Sinuses: Unremarkable. Mastoid Air Cells: Unremarkable. Vasculature: Unremarkable. Bones/Soft Tissues: No acute abnormality. Other: None. IMPRESSION: 1. No acute intracranial process.
[2024-08-18 23:38] VITALS: O2SAT 98
--- NOTE | 2024-08-19 08:22 | DVHDS2 ---
Discharge Summary Date of Admission August 18, 2024 at 05:00 Date of Discharge: August 19, 2024 Admitting Diagnosis Acute heart failure Labs/Diagnostic Data: Laboratory Results Test 08/18/24 13:57 08/18/24 05:44 08/17/24 22:52 08/17/24 19:59 Urine Color Colorless (Yellow) Urine Clarity Clear (Clear) Urine pH 5.0 (5.0-9.0) Urine Specific [place] 1.007 (1.001-1.035) Urine Protein Negative (Negative) Urine Ketones Negative (Negative) Urine Blood Negative /uL (Negative) Urine Nitrite Negative (Negative) Urine Bilirubin Negative (Negative) Urine Urobilinogen Normal mg/dL (Negative) Urine Leukocyte Esterase Trace /uL (Negative) Urine RBC 2 /hpf (0 - 4) Urine Microscopic WBC 3 /HPF (0-5) Urine Squamous Epithelial Cells Few /hpf (<5) Urine Bacteria Few /hpf (None Seen) Urine Glucose Normal mg/dL (Normal) Urine Opiates Screen Neg (NEGATIVE) Urine Fentanyl Screen Neg (NEGATIVE) Urine Barbiturates Screen Neg (NEGATIVE) Urine Phencyclidine Screen Neg (NEGATIVE) Urine Amphetamines Screen Neg (NEGATIVE) Urine Benzodiazepines Screen Neg (NEGATIVE) Urine Cocaine Screen Neg (NEGATIVE) Urine Cannabinoids Screen Neg (NEGATIVE) Sodium Level 146 mmol/L (136-145) Potassium Level 3.7 mmol/L (3.5-5.1) Chloride Level 114 mmol/L (98-107) Carbon Dioxide Level 19 mmol/L (20-31) Anion Gap 13 (5-15) Blood Urea Nitrogen 31 mg/dL (9-23) Creatinine 1.76 mg/dL (0.550-1.02) Glomerular Filtration Rate Calc 29 mL/min (>90) BUN/Creatinine Ratio 17.6 (10.0-20.0) Serum Glucose 87 mg/dL (74-106) Hemoglobin A1c 4.5 % A1C (<5.7) Calcium Level 11.4 mg/dL (8.7-10.4) Triglycerides Level 66 mg/dL (< 150) Cholesterol Level 178 mg/dL (< 200) LDL Cholesterol 108 mg/dL (< 100) HDL Cholesterol 58 mg/dL (40-59) Thyroid Stimulating Hormone (TSH) 1.78 uIU/mL (0.55-4.78) Troponin I High Sensitivity 583 ng/L (</=34) White Blood Count 5.6 10^3/uL (4.4-10.8) Red Blood Count 3.83 10^6/uL (4.0-5.20) Hemoglobin 11.5 g/dL (12.2-16.2) Hematocrit 36.0 % (36.0-46.0) Mean Corpuscular Volume 93.8 fL (80.0-100.0) Mean Corpuscular Hemoglobin 30.0 pg (28.0-32.0) Mean Corpuscular Hemoglobin Concent 32.0 g/dL (32.0-36.0) Red Cell Distribution Width 15.1 % (11.8-14.3) Platelet Count 310 10^3/uL (140-450) Mean Platelet Volume 7.9 fL (6.9-10.8) Neutrophils (%) (Auto) 72.5 % (37.0-80.0) Lymphocytes (%) (Auto) 20.8 % (10.0-50.0) Monocytes (%) (Auto) 5.5 % (0.0-12.0) Eosinophils (%) (Auto) 0.1 % (0.0-7.0) Basophils (%) (Auto) 1.1 % (0.0-2.0) Neutrophils # (Auto) 4.1 10 ^3/uL (1.6-8.6) Lymphocytes # (Auto) 1.2 10 ^3/uL (0.4-5.4) Monocytes # (Auto) 0.3 10 ^3/uL (0-1.3) Eosinophils # (Auto) 0 10 ^3/uL (0-0.8) Basophils # (Auto) 0.1 10 ^3/uL (0-0.2) Nucleated Red Blood Cells 0.1 % Total Bilirubin 1.2 mg/dL (0.2-1.0) Aspartate Amino Transferase (AST) 45 U/L (13-40) Alanine Aminotransferase (ALT) 68 U/L (7-40) Alkaline Phosphatase 84 U/L (46-116) B-Type Natriuretic Peptide 3944.47 pg/mL (0-100) Total Protein 6.7 g/dL (5.7-8.2) Albumin 4.1 g/dL (3.2-4.8) Other Laboratory Tests 08/18/24 05:44 08/17/24 19:59 Brief Hx & Hospital Course: History of Present Illness 79-YEAR-OLD FEMALE PRESENTS FOR EVALUATION OF CHEST PAIN. PATIENT INITIALLY PRESENTED TO URGENT CARE TO BE EVALUATED FOR CHEST PAIN WHICH SHE HAD THE NIGHT PRIOR. SHE WAS NOTED TO HAVE A BLOOD PRESSURE OF 230/130. SHE WAS ADVISED TO PRESENT TO THE NEAREST EMERGENCY DEPARTMENT FOR FURTHER EVALUATION. CURRENTLY SHE DENIES CHEST PAIN OR SHORTNESS FOR BREATH. DENIES HEADACHE OR BLURRED VISION. SHE DOES REPORT MILD DIZZINESS. DENIES ANY VISUAL CHANGES. Course of hospitalization: Patient was treated with IV p.o. antihypertensives, with blood pressure improving. Patient was noted to become agitated, noncompliant, pulling off all medical devices. With the patient's family bedside stating that this is not her normal mentation, CT scan of the head was performed which was negative for any acute pathology. Cardiology consultation was obtained, for which recommendations include blood pressure control, TTE, and EKG monitoring. No recommendations for ischemia workup were recommended at this time. Today, the patient answers to name, denies any symptoms, and continues to be somewhat irritable not allowing for physical assessment are for vital sign monitoring. At this time, with the hospital not currently having in-house Neurology, as well as the patient being hemodynamically stable with troponins that are equivocal, patient is stable to be transferred to [facility]. Attempts were made to call patient's son, Racquel, , for which there was no answer at this time. We will attempt to notify family prior to patient being transferred in fall parties are agreeable. Physical examination General: Alert and Oriented x2. No acute distress. Well-nourished. Eyes: EOMI. Anicteric. HENT: Moist mucous membranes. Lungs: Clear to auscultation bilaterally. No accessory muscle use. Cardiovascular: Regular rate and rhythm. No murmur. No JVD. Abdomen: Soft, non-tender and non-distended. No palpable masses. Extremities: No edema. Non-tender. Skin: No rashes or lesions. Warm. Neurologic: No focal neurological deficits. CN II-XII grossly intact, Psychiatric: Cooperative. Appropriate mood and affect. Total time spent with patient discussing and formulating plan of care: 35 minutes. This medical document was created using an electronic medical record system with Dragon computerized dictation system. Although this document has been carefully reviewed, there may still be some phonetic and typographical errors. These areas are purely typographical due to imperfections of the software programs, and do not reflect any compromise in the patient's medical care. Consults/Reason for consult Cardiology: NSTEMI Condition at Discharge: Poor Final Diagnosis/Problems List Hypertensive crisis with metabolic encephalopathy Secondary diagnosis: -metabolic encephalopathy, rule out CVA -hypertensive crisis -NSTEMI, probably type 2 secondary to hypertensive crisis -acute on chronic decompensated systolic heart failure -acute hypoxic respiratory failure -chronic opiate use -CKD stage IIIB Discharge Disposition: Acute Care Facility Discharge Instruct/Medications Diet: Cardiac 2g Na,low cholest Activity: No Restrictions, As Tolerated Follow Up/Referral: Per accepting provider Medications: Per medication reconciliation form 36 Discharge Statement: "Patient was advised to return to the ER or call 911 if any headaches, dizziness, shortness of breath, chest pain, abdominal pain, bleeding, fevers, or worsening of medical condition. Patient was counseled about treatment plan, medications, possible side effects, patientverbalized understanding. All questions were answered to the best of my ability. This discharge took greater then 30 minutes in planning, reviewing documentation, counseling the patient, and discussing with other team members." ASSESSMENT ASSESSMENT Assessment Hypertensive crisis with metabolic encephalopathy Date of Service: August 19, 2024 Billing Provider: NIC VIERA NP Common Visit Codes: [id number]/[id number] DISCH DAY >30min NIC VIERA NP August 19, 2024 08:22
[2024-08-19] MEDS: ASPirin 81 mg TAB PO SCH (10:00)
[2024-08-19 13:09] LABS: COVID19 ANTIGEN SOFIA FIA NEGATIVE (NEGATIVE)
[2024-08-19 16:00] VITALS: PULSE 80; RESP 14; O2SAT 96
[2024-08-19 20:27] VITALS: BP 160/95; PULSE 114; RESP 20; TEMP 97.9; O2SAT 96
--- NOTE | 2024-08-21 09:03 | DVHSR ---
APPROVED REPORT EXAM: Two-dimensional and M-mode echocardiogram with Doppler and color Doppler. Blood Pressure: 142/74 mmHg INDICATION EF RISK FACTORS Height: 66, Weight: 140 DIMENSIONS LVDd5.0 (3.8-5.7cm)LA (2D)5.0 (1.9-4.0cm)Aortic Root3.1 (2.0-3.7cm) LVDs4.4 (2.5-4.0cm)LA (MM) (1.9-4.0cm)Aortic Cusp Exc1.7 (1.5-2.0cm) EF (%) 26.0 (55-70%)Rt. Atrium4.2 (1.9-4.0cm)Asc. Aorta cm Mitral Valve MitralMitral Stenosis E wave0.89m/sMV Mean GR.mmHg A wave0.89m/sMV Peak GR.102mmHg E/A ratio1.02D MVAcm2 DECEL [id number] 1/2 [id number] IVRTmsDop MVA1.70cm2 Aortic Valve Aortic ValveAortic Stenosis V11.12m/Ibrahima Mean GR.10mmHg V22.36m/Ibrahima Peak GR.22mmHg LVOT Diameter2.0 (1.8-2.4cm)Doppler AVA1.49cm2 Pulmonic Valve V21.06m/s Tricuspid Valve TR Velocity2.69m/s [id number] Other Information Technically limited study due to body habitus, patient position and patient kept moving during exam. Conclusion Technically good study. Undetermined rhythm. Concentric LVH with left atrial enlargement. Mild aortic sclerosis. No stenosis. Mild mitral annular calcification. Tricuspid and pulmonic appe ar to be structurally normal. Left ventricular systolic performance is diminished. EF is about 25%. Global hypokinesis. RV funct ion is diminished. Mild pulmonic insufficiency. Mild MR. Moderate TR. No intracardiac masses thrombi or vegetations discernible.
== END 2024-08-19 20:33 | disposition short-term general hospital (02) | DRG 280 ==
LOC: EDBD 19:33 → ER 19:41 → OVERFLOW 08-18 05:00
PROVIDERS: ADMIT Nurse Practitioner Acute Care; ATTEND Nurse Practitioner Acute Care
DX: I13.0 Hypertensive heart and chronic kidney disease with heart failure and stage 1 through stage 4 chronic kidney disease, or unspecified chronic kidney disease (principal); G93.41 Metabolic encephalopathy; I21.A1 Myocardial infarction type 2; J96.01 Acute respiratory failure with hypoxia; I50.23 Acute on chronic systolic (congestive) heart failure; N17.0 Acute kidney failure with tubular necrosis; I16.1 Hypertensive emergency; I16.9 Hypertensive crisis, unspecified; J44.9 Chronic obstructive pulmonary disease, unspecified; N18.32 Chronic kidney disease, stage 3b; G89.29 Other chronic pain; Z20.822 Contact with and (suspected) exposure to COVID-19; F17.210 Nicotine dependence, cigarettes, uncomplicated; R74.01 Elevation of levels of liver transaminase levels; E78.5 Hyperlipidemia, unspecified; Z91.148 Patient's other noncompliance with medication regimen for other reason; Z79.891 Long term (current) use of opiate analgesic
CPT/HCPCS: 36415; 70450; 71045; 76775; 80048; 80053; 80061; 80307; 81001; 83036; 83880; 84443; 84484; 85025; 87426; 93005; 93306; 96374; 96375; 99291; G0378